=== PATIENT | male | born 1960 | race Caucasian/White ===

== ENCOUNTER 2020-10-14 07:13 | Emergency (ER) | payer OTHER, BC ==
[~2020-10-14] VITALS: Ht 177.8 cm; Wt 90.7 kg
[~2020-10-14 07:13] MED LIST: CETI5; LORA10ER; PANT40 PO; TAMS.4ER
[2020-10-14 07:33] LABS: PCO2 Arterial 35.2 mmHg (35-45); PO2 Arterial 202 mmHg (80-100); pH Blood Arterial 7.39 (7.35-7.45)
[2020-10-14 08:24] LABS: BASOPHILS ABSOLUTE AUTO 0.02 K/mm3 (0.00-0.23); BASOPHILS PERCENT AUTO 0 % (0-2); EOSINOPHILS ABSOLUTE AUTO 0.09 K/mm3 (0.00-0.68); EOSINOPHILS PERCENT AUTO 1 % (0-6); Hematocrit 27.5 % (37.0-53.0); Hemoglobin 8.8 g/dL (13.5-17.5); IMMATURE GRAN ABSOLUTE AUTO 0.07 K/mm3 (0.00-0.10); IMMATURE GRAN PERCENT AUTO 1 % (0-1); LYMPHOCYTES ABSOLUTE AUTO 1.42 K/mm3 (0.84-5.20); LYMPHOCYTES PERCENT AUTO 14 % (21-46); MONOCYTES ABSOLUTE AUTO 0.35 K/mm3 (0.16-1.47); MONOCYTES PERCENT AUTO 3 % (4-13); Mean Corpuscular HGB 28.5 pg (26.0-34.0); Mean Corpuscular Volume 89 fL (80-100); Mean Platelet Volume 10.8 fL (9.1-12.4); NEUTROPHILS ABSOLUTE AUTO 8.43 K/mm3 (1.96-9.15); NEUTROPHILS PERCENT AUTO 81 % (41-73); Platelet Count 132 K/mm3 (150-400); RDW Coefficient Variation 12.9 % (11.7-14.2); RDW Standard Deviation 41.7 fL (35.1-46.3); Red Blood Cell Count 3.09 M/mm3 (4.30-5.90); White Blood Cell Count 10.38 K/mm3 (4.00-11.30)
[2020-10-14 08:54] LABS: Alanine Aminotransfer (ALT/SGP 20 U/L (12-78); Albumin, Blood 0.9 g/dL (3.4-5.0); Alk Phos 18 U/L (50-136); Anion Gap 12 mmol/L (6-16); Aspartate Aminotrans (AST/SGOT 24 U/L (12-37); Bilirubin, Total <0.1 mg/dL (0.1-1.0); Blood Urea Nitrogen 8 mg/dL (8-24); Bun/Creatinine Ratio 13.8 (12.0-20.0); CO2, Blood 13 mmol/L (21-32); Chloride, Blood 113 mmol/L (98-108); Creatinine, Blood 0.58 mg/dL (0.60-1.20); Globulin, Blood 0.9 g/dL (2.2-4.0); Glomerular Filtration Rate >60 (60-); Glucose, Blood 97 mg/dL (70-99); Sodium, Blood 138 mmol/L (136-145); Total Protein, Blood 1.8 g/dL (6.4-8.2)
[2020-10-14 08:55] LABS: Calcium, Blood <5.0 mg/dL (8.5-10.1); Potassium, Blood 1.5 mmol/L (3.5-5.5)
== END 2020-10-14 08:16 | disposition short-term general hospital (02) ==
LOC: ER 07:13
PROVIDERS: Emergency Medicine
DX: S32.502A Unspecified fracture of left pubis, initial encounter for closed fracture (principal); S32.501A Unspecified fracture of right pubis, initial encounter for closed fracture; S32.10XA Unspecified fracture of sacrum, initial encounter for closed fracture; S32.302A Unspecified fracture of left ilium, initial encounter for closed fracture; S32.402A Unspecified fracture of left acetabulum, initial encounter for closed fracture; S22.42XA Multiple fractures of ribs, left side, initial encounter for closed fracture; S12.401A Unspecified nondisplaced fracture of fifth cervical vertebra, initial encounter for closed fracture; Z79.899 Other long term (current) drug therapy; Z88.5 Allergy status to narcotic agent; V49.40XA Driver injured in collision with unspecified motor vehicles in traffic accident, initial encounter; Y92.410 Unspecified street and highway as the place of occurrence of the external cause
CPT/HCPCS: 36430; 36600; 70450; 71045; 71260; 72125; 72170; 74177; 80053; 82803; 83690; 85025; 86850; 86900; 86901; 86923; 96374-59; 99285-25; J7030; P9016; Q9967

== ENCOUNTER 2022-09-20 13:09 | Day surgery (SDC) | payer BC ==
[~2022-09-20] VITALS: Ht 172.7 cm; Wt 87.1 kg
[2022-09-20] MEDS ORDERED: TAMS.4ER (13:25)
[2022-09-20] MEDS ORDERED: OMEP20ER (13:25)
== END 2022-09-20 16:01 | disposition home or self-care (01) ==
LOC: ORSCSDS 13:09
PROVIDERS: Internal Medicine Gastroenterology
PROC: 0D758ZZ Dilation of Esophagus, Via Natural or Artificial Opening Endoscopic (ICD-10-PCS; principal; 2022-09-20 14:30)
PROC: 0DB58ZX Excision of Esophagus, Via Natural or Artificial Opening Endoscopic, Diagnostic (ICD-10-PCS; principal; 2022-09-20 14:30)
PROC: 0DBM8ZX Excision of Descending Colon, Via Natural or Artificial Opening Endoscopic, Diagnostic (ICD-10-PCS; principal; 2022-09-20 14:30)
DX: R13.10 Dysphagia, unspecified (principal); K21.00 Gastro-esophageal reflux disease with esophagitis, without bleeding; Z12.11 Encounter for screening for malignant neoplasm of colon; D12.4 Benign neoplasm of descending colon; K57.30 Diverticulosis of large intestine without perforation or abscess without bleeding; Z79.899 Other long term (current) drug therapy; K22.89 Other specified disease of esophagus
CPT/HCPCS: J2704; J7120

== ENCOUNTER 2023-12-25 06:09 | Inpatient (IN) | payer OTHER, BC ==
[~2023-12-25] VITALS: Ht 170.2 cm; Wt 101.2 kg
[2023-12-30 12:44] VITALS: BP 166/96
== END 2023-12-30 12:57 | disposition home or self-care (01) | DRG 440 ==
LOC: ER 06:09 → SURS 09:03
PROVIDERS: ADMIT Family Medicine
DX: K85.10 Biliary acute pancreatitis without necrosis or infection (principal); N40.0 Benign prostatic hyperplasia without lower urinary tract symptoms; E78.5 Hyperlipidemia, unspecified; I10 Essential (primary) hypertension; K21.9 Gastro-esophageal reflux disease without esophagitis; Z88.5 Allergy status to narcotic agent; Z88.1 Allergy status to other antibiotic agents; Z88.2 Allergy status to sulfonamides; Z79.899 Other long term (current) drug therapy; Z90.49 Acquired absence of other specified parts of digestive tract; Z98.890 Other specified postprocedural states; R63.0 Anorexia; E66.3 Overweight; Z68.31 Body mass index [BMI] 31.0-31.9, adult

== ENCOUNTER 2024-03-18 09:05 | Day surgery (SDC) | payer OTHER, BC ==
[~2024-03-18] VITALS: Ht 172.7 cm; Wt 85.8 kg
[2024-03-18] VITALS (17 sets, daily range): BP systolic 106–149; BP diastolic 79–107
[~2024-03-18 09:05] MED LIST changes: +ACET325 PO; +Calcium Carbon500 MG PO; +DOCUZEN 8.6-501 EACH PO; +FAMO20 PO; +HYDR1TAB94 PO; +Lactated Ringer's 1,000 ML IV SCH; +MIRALAX17 GM PO; +OMEP20ER; +Prinivil10 MG PO
[2024-03-18] MEDS ORDERED: TAMSULOSIN HCL0.4 M1 PO (09:38)
--- NOTE | 2024-03-18 09:50 | NUR ---
History, Chart, Medications and Allergies reviewed before start of procedure. Lungs clear T/O to Auscultation. Pre-Op teaching done. Pt verbalizes understanding. Patient confirms NPO status and agrees with scheduled surgery. Patient States Post-Procedure ride home has been arranged.
[2024-03-18] MEDS ORDERED: Benzocaine Oral Spray 0.5ML UD ONE (10:21)
[2024-03-18] MEDS ORDERED: propofoL 40 ML IV ONE (10:21)
--- NOTE | 2024-03-18 10:49 | NUR ---
03/18/24 Talia Bateman HISTORY, CHART, MEDICATIONS AND ALLERGIES REVIEWED BEFORE START OF PROCEDURE. PATIENT CONFIRMS NPO STATUS AND AGREES WITH SCHEDULED PROCEDURE. 3-LEAD EKG REVIEWED WITH PHYSICIAN PRIOR TO START OF PROCEDURE. MONITOR INTACT WITH CONTINUOUS PULSE OXIMETRY,CAPNOGRAPHY, 3-LEAD EKG, INTERMITTENT BP. SUPPLEMENTAL O2 TO BE TITRATED THROUGHOUT PROCEDURE TO MAINTAIN O2 SATURATION ABOVE 90%. PATIENT DETERMINED TO BE ASA APPROPRIATE FOR PROPOFOL SEDATION PRIOR TO START OF PROCEDURE BY .
--- NOTE | 2024-03-18 11:14 | NUR ---
PT TAKEN FOR CHEST XRAY.
--- NOTE | 2024-03-18 11:20 | NUR ---
PT BACK FROM RADIOLOGY.
--- NOTE | 2024-03-18 11:22 | NUR ---
PT SWALLOWING WATER, REPORTS SOME DISCOMFORT IN CHEST. VSS. 4 OUT OF 10 PAIN
--- NOTE | 2024-03-18 11:52 | NUR ---
DR. ARCHULETA REVIEWED XRAY. Discharge instructions reviewed with patient. Patient verbalizes understanding. Copy given to patient to take home.
== END 2024-03-18 11:54 | disposition home or self-care (01) ==
LOC: ORSCMMR 09:05 → ORD 10:00 → ORSCMMR 10:00
PROVIDERS: Internal Medicine Gastroenterology
PROC: 0D758ZZ Dilation of Esophagus, Via Natural or Artificial Opening Endoscopic (ICD-10-PCS; principal; 2024-03-18 10:00)
PROC: 0DB48ZX Excision of Esophagogastric Junction, Via Natural or Artificial Opening Endoscopic, Diagnostic (ICD-10-PCS; principal; 2024-03-18 10:00)
DX: R13.14 Dysphagia, pharyngoesophageal phase (principal); K22.2 Esophageal obstruction; K44.9 Diaphragmatic hernia without obstruction or gangrene; N40.0 Benign prostatic hyperplasia without lower urinary tract symptoms; Z79.899 Other long term (current) drug therapy
CPT/HCPCS: 71046; 88305; A9270; C1726; J2704; J7120

== ENCOUNTER 2024-11-17 14:04 | Observation (INO) | payer OTHER, BC ==
[~2024-11-17] VITALS: Ht 172.7 cm; Wt 84.0 kg
[~2024-11-17 14:04] MED LIST changes: -Lactated Ringer's 1,000 ML IV SCH; +TAMSULOSIN HCL0.4 M1 PO
[2024-11-17 14:53] LABS: BASOPHILS ABSOLUTE AUTO 0.02 K/mm3 (0.00-0.23); BASOPHILS PERCENT AUTO 1 % (0-2); EOSINOPHILS ABSOLUTE AUTO 0.03 K/mm3 (0.00-0.68); EOSINOPHILS PERCENT AUTO 1 % (0-6); Hematocrit 44.2 % (37.0-53.0); Hemoglobin 15.4 g/dL (13.5-17.5); IMMATURE GRAN ABSOLUTE AUTO 0.01 K/mm3 (0.00-0.10); IMMATURE GRAN PERCENT AUTO 0 % (0-1); LYMPHOCYTES ABSOLUTE AUTO 0.96 K/mm3 (0.84-5.20); LYMPHOCYTES PERCENT AUTO 27 % (21-46); MONOCYTES ABSOLUTE AUTO 0.47 K/mm3 (0.16-1.47); MONOCYTES PERCENT AUTO 13 % (4-13); Mean Corpuscular HGB 30.1 pg (26.0-34.0); Mean Corpuscular HGB Conc 34.8 g/dL (31.5-36.5); Mean Corpuscular Volume 87 fL (80-100); Mean Platelet Volume 10.3 fL (9.1-12.4); NEUTROPHILS PERCENT AUTO 59 % (41-73); Platelet Count 220 K/mm3 (150-400); RDW Coefficient Variation 12.6 % (11.7-14.2); RDW Standard Deviation 39.9 fL (35.1-46.3); Red Blood Cell Count 5.11 M/mm3 (4.30-5.90); White Blood Cell Count 3.59 K/mm3 (4.00-11.30)
[2024-11-17] MEDS ORDERED: NS 1,000 ML IV SCH ×2 (15:05→18:30)
[2024-11-17 15:18] LABS: Albumin, Blood 4.1 g/dL (3.4-5.0); Albumin/Globulin Ratio 1.2 (0.8-1.8); Bilirubin, Total 0.9 mg/dL (0.1-1.0); Bun/Creatinine Ratio 16.7 (12.0-20.0); Calcium, Blood 9.2 mg/dL (8.5-10.1); Creatinine, Blood 0.72 mg/dL (0.60-1.20); Globulin, Blood 3.3 g/dL (2.2-4.0); Potassium, Blood 3.8 mmol/L (3.5-5.5); Total Protein, Blood 7.4 g/dL (6.4-8.2)
[2024-11-17] MEDS ORDERED: EOHILIA2 MG/10 ML PO (17:15)
[2024-11-17] MEDS ORDERED: Ondansetron HCl 2 MG / ML 2ML Vial IV PRN (18:30)
[2024-11-17] MEDS ORDERED: FentaNYL Citrate 50 MCG/ML 2 ML Injection IV PRN (18:30)
[2024-11-17] MEDS ORDERED: FLU VACC TS2024-25(6MOS UP)/PF 45 MCG/0.5 ML SYRINGE IM SCH (18:30)
[2024-11-17 20:37] VITALS: BP 166/100
[2024-11-17] MEDS ORDERED: OMEP20ER PO (20:52)
[2024-11-17] MEDS ORDERED: TAMS.4ER PO (20:53)
[2024-11-18] VITALS (37 sets, daily range): BP systolic 111–179; BP diastolic 64–100
--- NOTE | 2024-11-18 04:56 | NUR ---
SHIFT SUMMARY; AFTER ADMIT, PATIENT WAS ABLE TO GET SOME SLEEP, TELE SB 57. NPO FOR MORNING PROCEDURE. NS/75ML/HR CONTINUOUS. ELEVATED BPS.
[2024-11-18 05:08] LABS: BASOPHILS ABSOLUTE AUTO 0.02 K/mm3 (0.00-0.23); BASOPHILS PERCENT AUTO 1 % (0-2); EOSINOPHILS ABSOLUTE AUTO 0.06 K/mm3 (0.00-0.68); EOSINOPHILS PERCENT AUTO 2 % (0-6); Hematocrit 40.6 % (37.0-53.0); Hemoglobin 13.9 g/dL (13.5-17.5); IMMATURE GRAN PERCENT AUTO 0 % (0-1); LYMPHOCYTES ABSOLUTE AUTO 0.92 K/mm3 (0.84-5.20); LYMPHOCYTES PERCENT AUTO 31 % (21-46); MONOCYTES ABSOLUTE AUTO 0.41 K/mm3 (0.16-1.47); MONOCYTES PERCENT AUTO 14 % (4-13); Mean Corpuscular HGB 29.8 pg (26.0-34.0); Mean Corpuscular HGB Conc 34.2 g/dL (31.5-36.5); Mean Corpuscular Volume 87 fL (80-100); Mean Platelet Volume 9.7 fL (9.1-12.4); NEUTROPHILS ABSOLUTE AUTO 1.53 K/mm3 (1.96-9.15); NEUTROPHILS PERCENT AUTO 52 % (41-73); Platelet Count 188 K/mm3 (150-400); RDW Coefficient Variation 12.5 % (11.7-14.2); RDW Standard Deviation 39.9 fL (35.1-46.3); Red Blood Cell Count 4.66 M/mm3 (4.30-5.90); White Blood Cell Count 2.94 K/mm3 (4.00-11.30)
[2024-11-18 05:27] LABS: Albumin, Blood 3.4 g/dL (3.4-5.0); Albumin/Globulin Ratio 1.2 (0.8-1.8); Bilirubin, Total 0.8 mg/dL (0.1-1.0); Bun/Creatinine Ratio 18.7 (12.0-20.0); Calcium, Blood 8.5 mg/dL (8.5-10.1); Creatinine, Blood 0.7 mg/dL (0.60-1.20); Globulin, Blood 2.9 g/dL (2.2-4.0); Potassium, Blood 3.5 mmol/L (3.5-5.5); Total Protein, Blood 6.3 g/dL (6.4-8.2)
[2024-11-18] MEDS ORDERED: Lactated Ringer's 1,000 ML IV SCH (13:45)
--- NOTE | 2024-11-18 13:54 | NUR ---
PT TRANSFERED TO OR.
[2024-11-18] MEDS ORDERED: propofoL 40 ML IV ONE (13:56)
[2024-11-18] MEDS ORDERED: Benzocaine Oral Spray 0.5ML UD ONE (13:56)
[2024-11-18] MEDS ORDERED: Glycopyrrolate 0.2 MG/ML 1MLVIAL ONE (14:56)
[2024-11-18] MEDS ORDERED: Midazolam HCl 1MG / ML 2ML Vial ONE (14:57)
[2024-11-18] MEDS ORDERED: propofoL 20 ML IV ONE (15:14)
--- NOTE | 2024-11-18 16:20 | NUR ---
PT BACK TO ROOM FROM D.
[2024-11-18] MEDS ORDERED: Omeprazole 20 MG CapCR PO SCH (16:30)
[2024-11-18] MEDS ORDERED: Fluconazole 100 MG Tab PO SCH (17:00)
--- NOTE | 2024-11-18 17:45 | NUR ---
PT DISCHARGED TO HOME WITH . DISCHARGE INSTRUCTIONS PROVIDED AND EDUCATED ON AT TIME OF DISCHARGE. ALL VALUABLES RETURNED AND SENT HOME WITH THE PT.
--- NOTE | 2024-11-19 11:33 | NUR ---
11/19/24 1133 Gena Lopez 1445- CONFIRMED AND REVIEWED H&P, MEDCICATIONS, ALLERGIES, MEDICAL HISTORY, RESPIRATORY HISTORY, VITAL SIGNS, 3-LEAD EKG, CONSENTS, AND PHYSICIAN ORDERS. PATIENT CONFIRMS NPO STATUS AND AGREES WITH SCHEDULED PROCEDURE. MONITOR INTACT WITH CONTINUOUS PULSE OXIMETRY, CAPNOGRAPHY, 3-LEAD EKG, INTERMITTENT BP. SUPPLEMENTAL O2 TO BE TITRATED THROUGHOUT PROCEDURE TO MAINTAIN O2 SATURATION ABOVE 90%. PATIENT DETERMINED TO BE ASA APPROPRIATE FOR PROPOFOL SEDATION PRIOR TO START OF PROCEDURE BY . MALLAMPATI CLASS 2 AIRWAY: COMPLETE VISUALIZATION OF THE UVULA.
== END 2024-11-18 18:05 | disposition home or self-care (01) ==
LOC: ER 14:04 → ERHOLD 14:05 → MEDS 14:05
PROVIDERS: Internal Medicine Gastroenterology; Student in an Organized Health Care Education/Training Program; ADMIT Internal Medicine
PROC: 0DB38ZX Excision of Lower Esophagus, Via Natural or Artificial Opening Endoscopic, Diagnostic (ICD-10-PCS; principal; 2024-11-18 14:00)
PROC: 0DB28ZX Excision of Middle Esophagus, Via Natural or Artificial Opening Endoscopic, Diagnostic (ICD-10-PCS; principal; 2024-11-18 14:00)
PROC: 0DB18ZX Excision of Upper Esophagus, Via Natural or Artificial Opening Endoscopic, Diagnostic (ICD-10-PCS; principal; 2024-11-18 14:00)
PROC: 0DC38ZZ Extirpation of Matter from Lower Esophagus, Via Natural or Artificial Opening Endoscopic (ICD-10-PCS; principal; 2024-11-18 14:00)
PROC: 0D738ZZ Dilation of Lower Esophagus, Via Natural or Artificial Opening Endoscopic (ICD-10-PCS; principal; 2024-11-18 14:00)
DX: K22.2 Esophageal obstruction (principal); K44.9 Diaphragmatic hernia without obstruction or gangrene; B37.81 Candidal esophagitis; T18.128A Food in esophagus causing other injury, initial encounter; K21.9 Gastro-esophageal reflux disease without esophagitis; N40.0 Benign prostatic hyperplasia without lower urinary tract symptoms; Z88.5 Allergy status to narcotic agent; E86.0 Dehydration; E78.5 Hyperlipidemia, unspecified; I10 Essential (primary) hypertension; Z87.891 Personal history of nicotine dependence
CPT/HCPCS: 36415; 80053; 83735; 83880; 85025; 88305; 88312; 96360; 96361; 99284-25; A9270; C1726; G0378; J2250; J2704; J7030; J7120

== ENCOUNTER 2025-05-07 06:54 | Day surgery (SDC) | payer OTHER, BC ==
[~2025-05-07] VITALS: Ht 172.7 cm; Wt 88.1 kg
[~2025-05-07 06:54] MED LIST changes: +EOHILIA2 MG/10 ML PO; +OMEP20ER PO; +TAMS.4ER PO
--- NOTE | 2025-05-07 10:02 | NUR ---
05/07/25 [facility] Alessia Desai DR. NOTIFIED OF PT.'S ELEVATED BP. SEE VITALS DOCUMENTED. PER DR. ALSTON, OK TO SEND PT. HOME, HAVE PT. MONITOR BP AT HOME & FOLLOW UP WITH PCP ABOUT HIS ELEVATED BP. 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
[2025-05-07 10:05] VITALS: BP 154/96
== END 2025-05-07 09:50 | disposition home or self-care (01) ==
LOC: ORSCSDS 06:54
PROVIDERS: Specialist
PROC: 0DB58ZX Excision of Esophagus, Via Natural or Artificial Opening Endoscopic, Diagnostic (ICD-10-PCS; principal; 2025-05-07 08:30)
DX: R13.10 Dysphagia, unspecified (principal); K22.2 Esophageal obstruction; K22.70 Barrett's esophagus without dysplasia; I10 Essential (primary) hypertension; E78.5 Hyperlipidemia, unspecified; E11.9 Type 2 diabetes mellitus without complications; Z79.899 Other long term (current) drug therapy
CPT/HCPCS: 88305; J2704; J7120